=== PATIENT | female | born 1950 | race Caucasian/White ===

== ENCOUNTER 2018-09-06 05:52 | Inpatient (IN) | payer MEDICARE | END 2018-09-09 13:45 | LOC: PAS IN 05:52 → ORTHO 4S 11:00 | PROC: 0SR90J9 Replacement of Right Hip Joint with Synthetic Substitute, Cemented, Open Approach (ICD-10-PCS; principal; 2018-09-06 07:16) | DX: M16.11 Unilateral primary osteoarthritis, right hip (principal); D62 Acute posthemorrhagic anemia ==

== ENCOUNTER 2020-02-29 15:40 | Outpatient (CLI) | payer MEDICARE ==
[~2020-02-29] VITALS: Ht 170.2 cm; Wt 67.1 kg
[~2020-02-29 15:40] MED LIST: AMLO10TA PO; ASPI81TA30 PO; BUPR300T53 PO; DOXY100C43 PO; FLUO-167 PO; GABA-532 PO; HYDR25TA4 PO; IRBE150T51 PO; MELO7.5T12 PO
[2020-02-29] MEDS ORDERED: albuterol 2.5 MG/3 ML nebule NEB ONE (16:35)
== END 2020-02-29 23:59 | disposition home or self-care (01) ==
LOC: RT 15:40
PROVIDERS: ATTEND Internal Medicine Pulmonary Disease
DX: D86.0 Sarcoidosis of lung (principal); R94.2 Abnormal results of pulmonary function studies
CPT/HCPCS: 94060; 94727; 94729; 94760